=== PATIENT | female | born 1985 | race Caucasian/White ===

== ENCOUNTER → 2016-10-11 | Outpatient (CLI) | payer BC ==
[~2016-10-11] MED LIST: MTR600X PO; OXYC5TAB PO; PRENTAB26 PO
== END | disposition home or self-care (01) ==
LOC: C.PAPS 08:31
PROVIDERS: ATTEND Obstetrics & Gynecology
DX: Z01.419 Encounter for gynecological examination (general) (routine) without abnormal findings (principal)

== ENCOUNTER → 2017-04-17 | Outpatient (CLI) | payer BC ==
[2017-04-17 14:38] LABS: PREG INTERNAL POSITIVE QC POS CONTROL LINE
[2017-04-17 14:39] LABS: PREG INTERNAL NEGATIVE QC NEG CLEAR BACKGROUND
== END | disposition home or self-care (01) ==
LOC: C.LAB1850 12:26
PROVIDERS: ATTEND Physician Assistant
DX: N91.5 Oligomenorrhea, unspecified (principal)

== ENCOUNTER → 2017-09-04 | Outpatient (CLI) | payer BC | END | disposition home or self-care (01) | LOC: C.LAB1850 13:17 | PROVIDERS: ATTEND Obstetrics & Gynecology | DX: Z32.00 Encounter for pregnancy test, result unknown (principal) ==

== ENCOUNTER → 2017-09-29 | Outpatient (CLI) | payer BC ==
[2017-09-29 17:20] LABS: BASO % 0.8 %; BASO ABS # 0.08 K/uL (0-0.2); EOS % 0.5 %; EOS ABS # 0.05 K/uL (0-0.5); HEMATOCRIT 36.1 % (37-47); HEMOGLOBIN 12.5 g/dL (12.0-16.0); IG# 0.02 K/uL (0.00-0.02); LYMPH % 22.7 %; LYMPH ABS # 2.28 K/uL (1.2-3.4); MEAN CELL VOLUME 90.5 fL (80-100); MEAN CORPUSCULAR HEMOGLOBIN 31.3 pg (25-34); MEAN CORPUSCULAR HGB CONC 34.6 g/dl (32-36); MEAN PLATELET VOLUME 11.1 fL (7.4-10.4); MONO % 6.9 %; MONO ABS # 0.69 K/uL (0.11-0.59); NEUT % 68.9 %; NEUT ABS # 6.92 K/uL (1.4-6.5); PLATELET COUNT 204 K/uL (130-400); RED CELL DISTRIBUTION WIDTH CV 12.5 % (11.5-14.5); RED CELL DISTRIBUTION WIDTH SD 41.4 fL (36.4-46.3); WHITE BLOOD COUNT 10.04 K/uL (4.8-10.8)
== END | disposition home or self-care (01) ==
LOC: C.LAB1850 15:37
PROVIDERS: ATTEND Obstetrics & Gynecology
DX: Z34.81 Encounter for supervision of other normal pregnancy, first trimester (principal)

== ENCOUNTER → 2017-09-29 | Outpatient (CLI) | payer BC ==
[~2017-09-29] MED LIST changes: +ONDA4TAB10 SL
== END | disposition home or self-care (01) ==
LOC: C.PAPS 10:31
PROVIDERS: ATTEND Obstetrics & Gynecology
DX: Z01.419 Encounter for gynecological examination (general) (routine) without abnormal findings (principal)

== ENCOUNTER → 2017-09-29 | Outpatient (CLI) | payer BC ==
[~2017-09-29] MED LIST changes: -ONDA4TAB10 SL
== END | disposition home or self-care (01) ==
LOC: C.LABSPEC 15:23
PROVIDERS: ATTEND Obstetrics & Gynecology
DX: Z34.81 Encounter for supervision of other normal pregnancy, first trimester (principal)

== ENCOUNTER 2017-10-17 11:02 | Emergency (ER) | payer BC ==
[~2017-10-17] VITALS: Ht 149.9 cm; Wt 57.0 kg
[2017-10-17 11:17] VITALS: Ht 149.9 cm; Wt 57.0 kg
[2017-10-17 11:38] VITALS: O2SAT 95
[2017-10-17] MEDS ORDERED: SODIUM CHLORIDE 0.9% 1000ML 1,000 ML IV STA ×2 (11:58→14:23)
[2017-10-17] MEDS ORDERED: ONDANSETRON INJ 2 MG/ML 2 ML VIAL IV STA ×2 (11:58→13:19)
[2017-10-17] MEDS ORDERED: ONDA4TAB10 SL (12:29)
[2017-10-17 12:31] LABS: BASO % 0.2 %; BASO ABS # 0.02 K/uL (0-0.2); EOS % 0.1 %; EOS ABS # 0.01 K/uL (0-0.5); HEMATOCRIT 38.8 % (37-47); HEMOGLOBIN 13.9 g/dL (12.0-16.0); IG# 0.02 K/uL (0.00-0.02); LYMPH % 6.5 %; LYMPH ABS # 0.79 K/uL (1.2-3.4); MEAN CELL VOLUME 87.8 fL (80-100); MEAN CORPUSCULAR HEMOGLOBIN 31.4 pg (25-34); MEAN CORPUSCULAR HGB CONC 35.8 g/dl (32-36); MEAN PLATELET VOLUME 10.3 fL (7.4-10.4); MONO % 2.4 %; MONO ABS # 0.29 K/uL (0.11-0.59); NEUT % 90.6 %; NEUT ABS # 11.05 K/uL (1.4-6.5); PLATELET COUNT 198 K/uL (130-400); RED CELL DISTRIBUTION WIDTH CV 12.6 % (11.5-14.5); RED CELL DISTRIBUTION WIDTH SD 40.6 fL (36.4-46.3); WHITE BLOOD COUNT 12.18 K/uL (4.8-10.8)
[2017-10-17 13:19] LABS: ALBUMIN 3.7 gm/dl (3.4-5.0); CALCIUM 8.9 mg/dl (8.5-10.1); CREATININE 0.56 mg/dl (0.60-1.20); POTASSIUM 3.9 mmol/L (3.5-5.1)
[2017-10-17 13:21] LABS: TOTAL PROTEIN 7.6 gm/dl (6.4-8.2)
--- NOTE | 2017-10-17 15:45 | EMERGENCY ROOM VISIT NOTE ---
History First contact with patient: 11:48 Chief Complaint: VOMITING Stated Complaint: 11 WEEKS, VOMITTING EVERY 15-20 MIN Nursing Triage Summary: pt 11 wks preg and had n/v since 3 am today and thinks she may have passed out after vomitting this am but is not sure History of Present Illness The patient is a 31 year old female who presents to the Emergency Room with complaints of nausea, vomiting and diarrhea since 3 AM this morning. The patient reports that she was awakened at 3 AM with diarrhea. She has had approximately 4 watery bowel movements since that time. She started to vomit around 3:30 AM, and has had more episodes of vomiting than diarrhea. The patient reports that prior to coming to the emergency department, she 5 she may have passed out when vomiting. She currently denies any headache, neck pain, back pain, chest pain, shortness of breath or focal abdominal pain. She has not noticed any vaginal bleeding. She has urinated this morning without any evidence for blood. They should is currently 11 weeks with an OB history of . She rates her overall discomfort a 6 out of 10. Review of Systems HEENT: Denies dizziness, visual problems, hearing loss, tinnitus. Denies difficulty swallowing or oral lesions. PULMONARY: Denies cough, shortness of breath, sputum production or hemoptysis. CARDIOVASCULAR: Denies chest pain, palpitations, dyspnea on exertion, orthopnea or peripheral edema. GASTROINTESTINAL: See history of present illness. GENITOURINARY: Denies dysuria, frequency, urgency or nocturia. NEUROLOGIC: Denies history of epilepsy, CVA, TIA or chronic headaches. MUSCULOSKELETAL: Denies history of joint tenderness/swelling. SKIN: Denies rashes or lesions. PSYCHIATRIC: Denies history of depression or mental illness. ENDOCRINE: Denies history of diabetes or thyroid disorders. Past Medical/Surgical History Medical Problems: (1) Amniotic fluid leaking (2) Normal labor (3) Post-dates Family History Unremarkable Social History Smoking Status: Never Smoker Alcohol Use: none Marital Status: Housing Status: lives with family Occupation Status: employed Current/Historical Medications Scheduled Multivit/Min/Iron/Fol Ac/Pren ( Vitamin), 1 TAB PO DAILY Ondasetron Odt (Zofran Odt), 4 MG SL Q6H Physical Exam Vital Signs Date Time Temp Pulse Resp B/P (MAP) Pulse Ox O2 Delivery O2 Flow Rate FiO2 2/18 17:30 75 16 115/76 98 10/17/17 17:00 36.9 93 16 100/74 100 Room Air 10/17/17 14:36 36.6 86 16 94/53 100 Room Air 10/17/17 12:30 85 19 109/62 100 Room Air 10/17/17 11:58 86 10/17/17 11:38 95 Room Air 10/17/17 11:17 36.9 99 16 111/74 97 Physical Exam CONSTITUTIONAL: Healthy and well nourished. Alert and oriented X 3 with positive affect. Patient appears in moderate discomfort from nausea, holding an emesis bag. HEENT: Normocephalic, atraumatic. Pupils equal, round and reactive. Ears and nares are clear. No submental hemorrhage, sclerae icterus or conjunctival pallor. OROPHARYNX: Mucous membranes are dry. No tonsillar hypertrophy or exudates. NECK: Full active range of motion without discomfort. RESPIRATORY: Clear to auscultation bilaterally with no wheezing, crackles, rhonchi or stridor. CARDIOVASCULAR: Regular rate and rhythm with no murmurs, rubs or gallops. GASTROINTESTINAL: Bowel sounds present in all quadrants. The patient has generalized nonfocal tenderness to palpation of the abdomen. Fundal height is appropriate with gestational age. heart rate was 161. MUSCULOSKELETAL: Full range of motion of all joints without discomfort. INTEGUMENTARY: No rash or other significant dermatologic conditions noted. NEUROLOGIC: No focal neurologic deficits noted. Medical Decision & Procedures Laboratory Results 10/17/17 12:15 Red Blood Count 4.42, Mean Corpuscular Volume 87.8, Mean Corpuscular Hemoglobin 31.4, Mean Corpuscular Hemoglobin Concent 35.8, Mean Platelet Volume 10.3, Neutrophils (%) (Auto) 90.6, Lymphocytes (%) (Auto) 6.5, Monocytes (%) (Auto) 2.4, Eosinophils (%) (Auto) 0.1, Basophils (%) (Auto) 0.2, Neutrophils # (Auto) 11.05, Lymphocytes # (Auto) 0.79, Monocytes # (Auto) 0.29, Eosinophils # (Auto) 0.01, Basophils # (Auto) 0.02 10/17/17 12:15 Test 10/17/17 12:15 10/17/17 15:11 White Blood Count 12.18 K/uL (4.8-10.8) Red Blood Count 4.42 M/uL (4.2-5.4) Hemoglobin 13.9 g/dL (12.0-16.0) Hematocrit 38.8 % (37-47) Mean Corpuscular Volume 87.8 fL (80-100) Mean Corpuscular Hemoglobin 31.4 pg (25-34) Mean Corpuscular Hemoglobin Concent 35.8 g/dl (32-36) Platelet Count 198 K/uL (130-400) Mean Platelet Volume 10.3 fL (7.4-10.4) Neutrophils (%) (Auto) 90.6 % Lymphocytes (%) (Auto) 6.5 % Monocytes (%) (Auto) 2.4 % Eosinophils (%) (Auto) 0.1 % Basophils (%) (Auto) 0.2 % Neutrophils # (Auto) 11.05 K/uL (1.4-6.5) Lymphocytes # (Auto) 0.79 K/uL (1.2-3.4) Monocytes # (Auto) 0.29 K/uL (0.11-0.59) Eosinophils # (Auto) 0.01 K/uL (0-0.5) Basophils # (Auto) 0.02 K/uL (0-0.2) RDW Standard Deviation 40.6 fL (36.4-46.3) RDW Coefficient of Variation 12.6 % (11.5-14.5) Immature Granulocyte % (Auto) 0.2 % Immature Granulocyte # (Auto) 0.02 K/uL (0.00-0.02) Anion Gap 7.0 mmol/L (3-11) Est Creatinine Clear Calc Drug Dose 109.9 ml/min Estimated GFR () 142.0 Estimated GFR (Non- 122.5 BUN/Creatinine Ratio 16.1 (10-20) Calcium Level 8.9 mg/dl (8.5-10.1) Total Bilirubin 0.4 mg/dl (0.2-1) Direct Bilirubin 0.1 mg/dl (0-0.2) Aspartate Amino Transf (AST/SGOT) 22 U/L (15-37) Alanine Aminotransferase (ALT/SGPT) 33 U/L (12-78) Alkaline Phosphatase 50 U/L (45-117) Total Protein 7.6 gm/dl (6.4-8.2) Albumin 3.7 gm/dl (3.4-5.0) Lipase 138 U/L (73-393) Urine Color YELLOW Urine Appearance CLEAR (CLEAR) Urine pH 6.5 (4.5-7.5) Urine Specific [place] 1.025 (1.000-1.030) Urine Protein NEG (NEG) Urine Glucose (UA) NEG (NEG) Urine Ketones 3+ (NEG) Urine Occult Blood NEG (NEG) Urine Nitrite NEG (NEG) Urine Bilirubin NEG (NEG) Urine Urobilinogen NEG (NEG) Urine Leukocyte Esterase NEG (NEG) The above labs were reviewed. The patient has a mildly elevated white count, otherwise remaining labs are normal. Medications Administered Medications (Trade) Dose Ordered Sig/Christiano Route Start Time Stop Time Status Last Admin Dose Admin Sodium Chloride 1,000 ml @ 999 mls/hr Q1H1M STAT IV 10/17/17 11:58 10/17/17 12:58 DC 10/17/17 12:26 999 MLS/HR Ondansetron HCl (Zofran Inj) 4 mg NOW STAT IV 10/17/17 11:58 10/17/17 12:00 DC 10/17/17 12:26 4 MG Ondansetron HCl (Zofran Inj) 4 mg NOW STAT IV 10/17/17 13:19 10/17/17 13:20 DC 10/17/17 13:25 4 MG Sodium Chloride 1,000 ml @ 999 mls/hr Q1H1M STAT IV 10/17/17 14:23 10/17/17 15:23 DC 10/17/17 14:37 999 MLS/HR Diphenhydramine HCl (Benadryl Inj) 25 mg NOW STAT IV 10/17/17 16:08 10/17/17 16:09 DC 10/17/17 16:14 25 MG Procedure 1. IV hydration: The patient was administered normal saline 1 L bolus 2 while in the emergency department. 2. IV medications: Zofran 4 mg IVP 2 while in the emergency department. ED Course Patient history and physical exam were performed. Nurse's notes were reviewed. Vital signs were reviewed and were normal. IV access was established, and labs were drawn. The patient was hydrated with normal saline, and received IV Zofran for nausea. Review of labs shows a mild leukocytosis, otherwise labs are grossly normal. Urinalysis is not consistent with infection. heart tones were normal at 161 beats per minute. The patient was administered an additional liter normal saline because of dizziness, and additional Zofran IVP for persistent nausea. After the patient received a second liter of normal saline, she still reported nausea. At this point, she was administered Benadryl 25 mg IVP. The patient reports that the nausea was intermittent at that time, and was offered IV Reglan. She elected to wait, and reported that her symptoms did improve. The patient was trial ambulated with success. The patient was encouraged to remain well-hydrated. Tylenol as needed for pain. The patient was provided a prescription for Zofran ODT if needed for additional nausea relief. The patient was instructed to return to the emergency department for any inability to remain hydrated or persistent vomiting. She was encouraged to follow-up with her [employer] with any further OB concerns. She may also follow-up with her PCP as needed if symptoms are not improving within the next 2-3 days. The patient was happy with plan of care, and voiced understanding of all discharge instructions. Medical Decision I suspect the patient is suffering from viral gastroenteritis. Her lab work today is grossly normal. She does not appear in any acute distress, and responded nicely to parenteral hydration and antiemetics. heart tones are also normal at this time. Laboratory studies are not suggestive of pancreatitis, hepatitis, UTI or cholecystitis. Clinical exam is not suggestive of peritonitis, pyelonephritis, appendicitis, diverticulitis or surgical abdomen. I do not feel that any further imaging studies are warranted. Medication Reconcilliation Current Medication List: was personally reviewed by me Blood Pressure Screening Patient's blood pressure: Normal blood pressure Impression Primary Impression: Gastroenteritis Departure Information Prescriptions Ondasetron Odt (ZOFRAN ODT) 4 Mg Tab 4 MG SL Q6H for Nausea, #20 TAB Prov: Naman Alex PA 10/17/17 Referrals No Doctor, Assigned (PCP) Patient Instructions My [facility]
[2017-10-17] MEDS ORDERED: DiphenhydrAMINE HCL 50 MG/ML VIAL IV STA (16:08)
[2017-10-17 17:00] VITALS: TEMP 36.9
[2017-10-17 17:30] VITALS: BP 115/76; PULSE 75; O2SAT 98
== END 2017-10-17 17:30 | disposition home or self-care (01) ==
LOC: C.EDB 11:04 → C.EDC 17:30
DX: K52.9 Noninfective gastroenteritis and colitis, unspecified (principal)

== ENCOUNTER → 2017-11-22 | Outpatient (CLI) | payer BC ==
[~2017-11-22] MED LIST changes: -MTR600X PO; +ONDA4TAB10 SL; -OXYC5TAB PO
== END | disposition home or self-care (01) ==
LOC: C.LAB1850 12:52
PROVIDERS: ATTEND Obstetrics & Gynecology
DX: Z34.82 Encounter for supervision of other normal pregnancy, second trimester (principal)

== ENCOUNTER → 2018-04-12 | Outpatient (CLI) | payer BC | END | disposition home or self-care (01) | LOC: C.LABSPEC 12:51 | PROVIDERS: ATTEND Obstetrics & Gynecology | DX: Z34.83 Encounter for supervision of other normal pregnancy, third trimester (principal) ==